=== PATIENT | male | born 1930 | race Caucasian/White ===

== ENCOUNTER 2016-04-22 06:49 | Emergency (ER) | payer MEDICARE, OTHER ==
[~2016-04-22] VITALS: Ht 175.3 cm; Wt 78.0 kg
[2016-04-22 06:56] VITALS: BP 146/92; PULSE 84; RESP 16; TEMP 97.7; O2SAT 98
[2016-04-22] MEDS ORDERED: PRAV40TA2 PO (07:13)
[2016-04-22] MEDS ORDERED: LOSA50TA PO (07:13)
--- NOTE | 2016-04-22 07:27 | PD ---
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 States las time he had urine output was 8 or 9pm last night. Does not complain of pain but fullness in his bladder. Denies any fever, chest pain , sob, n/v, abdominal pain. Pt has had his suprapubic catheter replaced 3 times. Pt had urologist in [facility] and in [place] where he is going next. PFSH Past Medical History High Cholesterol: Yes Diminished Hearing: No Hypertension: Yes Influenza Vaccination: Yes ?: Not Past Surgical History Abdominal Surgery: Yes (MAYTE INGUINAL HERNIA REPAIR) Genitourinary Surgery: Yes (TURP) Social History Alcohol Use: Yes (OCC) Tobacco Use: No Allergies-Medications (Allergen,Severity, Reaction): Coded Allergies: Penicillin (Verified Allergy, Severe, Hives, 04/22/16) Sulfa (Verified Allergy, Severe, Hives, 04/22/16) Reported Meds & Prescriptions Reported Meds & Active Scripts Active Reported Pravastatin 40 Mg Tab 40 Mg PO HS Losartan (Losartan Potassium) 50 Mg Tab 50 Mg PO HS Review of Systems Except as stated in HPI: all other systems reviewed are Neg Physical Exam Narrative GENERAL: 86yo M not in distress. SKIN: Warm and dry. HEAD: Atraumatic. Normocephalic. EYES: Pupils equal and round. No scleral icterus. No injection or drainage. ENT: No nasal bleeding or discharge. Mucous membranes pink and moist. NECK: Trachea midline. No JVD. CARDIOVASCULAR: Regular rate and rhythm. No murmur appreciated. RESPIRATORY: No accessory muscle use. Clear to auscultation. Breath sounds equal bilaterally. GASTROINTESTINAL: Abdomen soft, mild discomfort suprapubic region. No rebound tenderness or guarding. MUSCULOSKELETAL: No obvious deformities. No clubbing. No cyanosis. No edema. NEUROLOGICAL: Awake and alert. No obvious cranial nerve deficits. Motor grossly within normal limits. Normal speech. PSYCHIATRIC: Appropriate mood and affect; insight and judgment normal. Data Data Last Documented VS Vital Signs Date Time Temp Pulse Resp B/P Pulse Ox O2 Delivery O2 Flow Rate FiO2 04/22/16 06:56 97.7 84 16 146/92 98 Orders Urinalysis - C+S If Indicated (04/22/16 07:27) Urine Culture (04/22/16 07:30) Labs Laboratory Tests Test 04/22/16 07:30 Urine Collection Type CLEAN CATCH Urine Color YELLOW Urine Turbidity SLIGHT Urine pH 6.0 Urine Specific [place] 1.007 Urine Protein TRACE mg/dL Urine Glucose (UA) NEG mg/dL Urine Ketones NEG mg/dL Urine Occult Blood LARGE Urine Nitrite NEG Urine Bilirubin NEG Urine Leukocyte Esterase LARGE Urine RBC 25-49 /hpf Urine WBC INNUM /hpf Urine WBC Clumps MOD Urine Bacteria MANY /hpf Microscopic Urinalysis Comment CULTURE INDICATED Urine Collection Time 07:30 [facility] Medical Decision Making Medical Screen Exam Complete: Yes Emergency Medical Condition: Yes Differential Diagnosis Clogged suprapubic catheter vs. suprapubic catheter malfunction Narrative Course 86yo M wit clogged suprapubic catheter. The nurse was able to flush it with sterile water and now it is flowing well with yellow urine output. Will send UA and reevaluate. UA showed large leukocyte and occult blood. Pt will be given macrobid secondary to allergy to sulfa and penicillin. Pt denies any abdominal pain or other symptoms. He wants to go home and has urologist that he will follow up in [place] because he is going back to [place]. Return precautions given. VS stable. Diagnosis Primary Impression: Suprapubic catheter dysfunction Qualified Code: T83.010A - Suprapubic catheter dysfunction, initial encounter Additional Impression: UTI (urinary tract infection) Qualified Code: T83.511A - Urinary tract infection associated with indwelling urethral catheter, initial encounter Patient Instructions: General Instructions Departure Forms: Tests/Procedures Additional Instructions: Please follow up with your urologist in [place] in 3-7 days. Return to the ED if your symptoms worsen. Med/Other Pt SpecificInfo: Prescription(s) given Scripts Nitrofurantoin Monohydrate Macrocrystals (Macrobid)100 Mg Dot160 Mg PO BID 7 Days Ref 0 Prov:Lorraine Cox DO 04/22/16 Disposition: 01 DISCHARGE HOME Condition: Stable Lorraine Cox DO Apr 22, 2016 07:27
[2016-04-22 07:33] LABS: BLOOD, URINE LARGE (NEG); GLUCOSE,URINE NEG (NEG); KETONE, URINE NEG (NEG); NITRITE,URINE NEG (NEG)
[2016-04-22 07:43] LABS: URINE COLOR YELLOW (YELLW/STRAW); WBC, URINE INNUM /hpf (0-5)
[2016-04-22 07:44] LABS: BACTERIA, URINE MANY /hpf
[2016-04-22 07:46] LABS: METHOD OF COLLECTION CLEAN CATCH
[2016-04-22 07:47] LABS: COMMENT (UR) CULTURE INDICATED; CULTURE IF INDICATED CULTURE INDICATED
[2016-04-22] MEDS ORDERED: MACR100C2 PO (07:52)
== END 2016-04-22 08:02 | disposition home or self-care (01) ==
LOC: PHED 06:49
DX: T83.090A Other mechanical complication of cystostomy catheter, initial encounter (principal); N39.0 Urinary tract infection, site not specified; E78.00 Pure hypercholesterolemia, unspecified; I10 Essential (primary) hypertension; B96.89 Other specified bacterial agents as the cause of diseases classified elsewhere
CPT/HCPCS: 51702; 81001; 87077; 87086; 87186; 99283

== ENCOUNTER 2016-04-22 22:01 | Emergency (ER) | payer MEDICARE, OTHER ==
[~2016-04-22] VITALS: Ht 175.3 cm; Wt 79.1 kg
[~2016-04-22 22:01] MED LIST: LOSA50TA PO; MACR100C2 PO; PRAV40TA2 PO
[2016-04-22 22:06] VITALS: BP 140/96; PULSE 97; RESP 20; TEMP 97.6; O2SAT 97
--- NOTE | 2016-04-22 23:14 | PD ---
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 He's been unable to get any fluid out of it today. It was blocked this morning. He came to the emergency department and flushed. It is. Again and he feels like his bladder is full PFSH Past Medical History High Cholesterol: Yes Diminished Hearing: No Hypertension: Yes Tetanus Vaccination: Unknown Influenza Vaccination: Yes Past Surgical History Abdominal Surgery: Yes (MAYTE INGUINAL HERNIA REPAIR) Genitourinary Surgery: Yes (TURP) Social History Alcohol Use: Yes (OCC) Tobacco Use: No Substance Use: No Allergies-Medications (Allergen,Severity, Reaction): Coded Allergies: Penicillin (Verified Allergy, Severe, Hives, 04/22/16) Sulfa (Verified Allergy, Severe, Hives, 04/22/16) Reported Meds & Prescriptions Reported Meds & Active Scripts Active Macrobid (Nitrofurantoin Monoh/Nitrofur Macro) 100 Mg Cap 100 Mg PO BID 7 Days Reported Pravastatin 40 Mg Tab 40 Mg PO HS Losartan (Losartan Potassium) 50 Mg Tab 50 Mg PO HS Review of Systems General / Constitutional: No: Fever, Chills Genitourinary: Positive: Decreased Urinary Output, Pelvic Pain Physical Exam Narrative Of the suprapubic catheter nontender. There is no evidence of infection Data Data Last Documented VS Vital Signs Date Time Temp Pulse Resp B/P Pulse Ox O2 Delivery O2 Flow Rate FiO2 04/22/16 22:06 97.6 97 20 140/96 97 MDM Medical Decision Making Medical Screen Exam Complete: Yes Emergency Medical Condition: Yes Medical Record Reviewed: Yes Differential Diagnosis Differential includes blocked suprapubic catheter Narrative Course We attempted to irrigate the catheter and was unsuccessful so was changed out for an 18 Russian catheter without complication. Diagnosis Primary Impression: Suprapubic catheter dysfunction Disposition: 01 DISCHARGE HOME Condition: Stable Kirk Bhatt MD Apr 22, 2016 23:14
[2016-04-22 23:30] VITALS: BP 156/83; PULSE 70; RESP 18; TEMP 97.6; O2SAT 96
== END 2016-04-22 23:45 | disposition home or self-care (01) ==
LOC: PHED 22:01
DX: T83.0 Mechanical complication of urinary catheter (principal); E78.00 Pure hypercholesterolemia, unspecified; I10 Essential (primary) hypertension
CPT/HCPCS: 51702

== ENCOUNTER 2016-04-23 07:11 | Emergency (ER) | payer MEDICARE, OTHER ==
[~2016-04-23] VITALS: Ht 175.3 cm; Wt 77.2 kg
[2016-04-23 07:17] VITALS: BP 144/92; PULSE 69; RESP 16; TEMP 97.6; O2SAT 99
--- NOTE | 2016-04-23 07:35 | PD ---
HPI Chief Complaint: Rn Heart Problem Time Seen by Provider: 07:26 Travel History International Travel<30 days: No Contact w/Intl Traveler<30days: No Traveled to known affect area: No History of Present Illness HPI This is an 86-year-old male who has a suprapubic catheter who had it replaced last night because it was clotted and received translucent plug that he is having trouble with, has difficulty pulling out and then when he places it has been leaking. It has Been very annoying to him and he was returning hoping that he could receive a different plug. He denies any other symptoms. PFSH Past Medical History Cardiovascular Problems: Yes (htn on meds) High Cholesterol: Yes Diminished Hearing: No Hypertension: Yes Tetanus Vaccination: Unknown Past Surgical History Abdominal Surgery: Yes (MAYTE INGUINAL HERNIA REPAIR) Genitourinary Surgery: Yes (TURP) Social History Alcohol Use: Yes (OCC) Tobacco Use: No Substance Use: No Allergies-Medications (Allergen,Severity, Reaction): Coded Allergies: Penicillin (Verified Allergy, Severe, Hives, 04/23/16) Sulfa (Verified Allergy, Severe, Hives, 04/23/16) Reported Meds & Prescriptions Reported Meds & Active Scripts Active Macrobid (Nitrofurantoin Monoh/Nitrofur Macro) 100 Mg Cap 100 Mg PO BID 7 Days Reported Pravastatin 40 Mg Tab 40 Mg PO HS Losartan (Losartan Potassium) 50 Mg Tab 50 Mg PO HS Review of Systems General / Constitutional: No: Fever, Chills Gastrointestinal: No: Nausea, Vomiting Physical Exam Narrative GENERAL: Well-appearing, no acute distress, nontoxic SKIN: Warm and dry. HEAD: Atraumatic. Normocephalic. ENT: No nasal bleeding or discharge. Moist mucous membranes MUSCULOSKELETAL: No obvious deformities. No clubbing. No cyanosis. No edema. NEUROLOGICAL: Awake and alert. No obvious cranial nerve deficits. Motor grossly within normal limits. Normal speech. PSYCHIATRIC: Appropriate mood and affect; insight and judgment normal. Data Data Last Documented VS Vital Signs Date Time Temp Pulse Resp B/P Pulse Ox O2 Delivery O2 Flow Rate FiO2 04/23/16 07:17 97.6 69 16 144/92 99 MDM Medical Decision Making Medical Screen Exam Complete: Yes Emergency Medical Condition: Yes Medical Record Reviewed: Yes (patient was seen here last night and had a suprapubic catheter replaced due to obstruction) Differential Diagnosis Obstruction, equipment malfunction Narrative Course This is an 86-year-old male who presents to the emergency department having received a suprapubic catheter last night which had a different plugs and what he use to. We provided him with a new plug which he was very happy with. He has no other symptoms. Patient was discharged home. Diagnosis Primary Impression: Suprapubic catheter dysfunction Qualified Code: T83.010D - Suprapubic catheter dysfunction, subsequent encounter Patient Instructions: General Instructions, How to Care for Your Suprapubic Catheter (ED) Med/Other Pt SpecificInfo: No Change to Meds Disposition: 01 DISCHARGE HOME Condition: Stable Lauren Savage MD Apr 23, 2016 07:35
== END 2016-04-23 07:48 | disposition home or self-care (01) ==
LOC: PHED 07:11
DX: T83.010 Breakdown (mechanical) of cystostomy catheter (principal); I10 Essential (primary) hypertension; E78.00 Pure hypercholesterolemia, unspecified
CPT/HCPCS: 99283